=== PATIENT | male | born 1960 | race Caucasian/White ===

== ENCOUNTER 2016-12-28 14:12 | Emergency (ER) | payer MEDICAID ==
[2016-12-28 14:32] VITALS: BP 149/108; PULSE 104; RESP 18; TEMP 99.1; O2SAT 98
[2016-12-28 14:42] LABS: COLOR YELLOW; LEUKOCYTE ESTERASE,URINE NEGATIVE (NEGATIVE); NITRITE,URINE NEGATIVE (NEGATIVE); PH,URINE 5.5 (5.0-7.5)
--- NOTE | 2016-12-28 15:29 | UCPHY ---
H & P Time Seen by Provider: 12/28/16 14:58 Patient Type: Established HPI/ROS: This patient notes a 2 month history of left-sided breast lump that has been mildly tender just lateral to the left nipple and now notes some tenderness a small lump to the right breast in a similar location. He is concerned about potential breast cancer as he has a family history of father with lymphoma and mother side of the family with breast cancer. He notes no exacerbating or alleviating factors for the symptoms. He reports mild discomfort associated with this. ROS: No high fevers or chills. No other constitutional symptoms. HEENT: No complaints pulmonary: No complaints cardiovascular: No lightheadedness GI: No complaints musculoskeletal: He complains of low back discomfort that he thinks was from falling sleep on the couch few nights ago. This was initially moderate bilateral paraspinous lumbar and is now minimal. The discomfort increases with movement. There has been no discharge from the nipples. Finally , he reports foul-smelling urine 3 days ago that is now improving. 10 point ROS is otherwise negative. Past Medical/Surgical History: Hypertension, CHF Social History: He does not use marijuana. Smoking Status: Light smoker Physical Exam: General Appearance: Alert, no distress. Eyes: Pupils equal and round no pallor or injection. ENT, Mouth: Mucous membranes moist. Respiratory: There are no retractions, lungs are clear to auscultation. Chest/breasts: Patient has a scar to the left lateral nipple region. He has some underlying fibers feeling tissue approximately 2 cm in diameter with mild tenderness. There is no overlying erythema or fluctuance. There is no orange peel appearance to the breast. The right breast exam reveals similar mild fibrous finding adjacent to the nipple smaller dimension approximately 1 cm. Minimal tenderness is present both sides. There is no skin changes overlying either breast. Cardiovascular: Regular rate and rhythm. Gastrointestinal: Abdomen is soft and nontender, no masses, bowel sounds normal. Back: No midline tenderness. Patient has mild bilateral paraspinous lumbar muscular tenderness that reproduces symptoms. Despite this retains full range of motion without increase in pain except mild increase with forward flexion. Neurological: Alert. No sensory motor deficits. Skin: Warm and dry, no rashes. Extremities are symmetrical, full range of motion. Psychiatric: Mood and affect normal DIFFERENTIAL DIAGNOSIS: After history and physical exam differential diagnosis was considered for breast scarring from injury, breast cancer, benign hypertrophy, low back strain, rule out UTI Constitutional: Initial Vital Signs Temperature (C) 37.3 C 12/28/16 14:23 Heart Rate 104 H 12/28/16 14:23 Respiratory Rate 18 12/28/16 14:23 Blood Pressure 149/108 H 12/28/16 14:23 O2 Sat (%) 98 12/28/16 14:23 O2 Delivery Mode Room Air Allergies/Adverse Reactions: No Known Allergies Allergy (Unverified 12/28/16 14:39) Home Medications: Medication Instructions Recorded Carvedilol 02/09/16 Carvedilol 12.5 mg PO BID #60 tablet 02/09/16 Furosemide [Lasix] 40 mg PO DAILY #60 tab 02/09/16 Lasix 02/09/16 Lisinopril 02/09/16 Lisinopril 10 mg PO DAILY #30 tablet 02/09/16 Spironolactone 02/09/16 Spironolactone 25 mg PO DAILY #30 tablet 02/09/16 MDM/Departure - MDM Diagnostics: Urinalysis is normal. ED Course/Re-evaluation: I consulted our radiologist-Dr. Thapa regarding this case knee recommends both ultrasound and mammogram and follow-up. I spoke with Dr. nj scope-the outpatient on-call physician-[facility]. Patient will follow up with their practice to establish primary care physician and Dr. Vergara will order the studies-ultrasound and mammogram of breasts for further evaluation. - Depart Disposition: Home, Routine, Self-Care Clinical Impression: Breast lump Low back strain Qualifiers: Encounter type: initial encounter Qualified Code(s): S39.012A - Strain of muscle, fascia and tendon of lower back, initial encounter Condition: Good Instructions: Breast Mass (ED), Low Back Strain (ED) Additional Instructions: Diagnosis: 1. Breast lump 2. Low back strain Plan: Call Dr. gissell li at [facility]-through [phone] to establish primary care physician and she will order the studies at her follow -up appointment. For low back-take ibuprofen Tylenol as needed Referrals: NONE *PRIMARY CARE P,. [Primary Care Provider] - As per Instructions Carey Vergara MD [Medical Doctor] - As per Instructions - PQRS PQRS Measurement: NA
== END 2016-12-28 15:43 | disposition home or self-care (01) ==
LOC: CED 14:12
DX: N63 Unspecified lump in breast (principal); S39.012A Strain of muscle, fascia and tendon of lower back, initial encounter; Z80.3 Family history of malignant neoplasm of breast; X50.1XXA Overexertion from prolonged static or awkward postures, initial encounter; Y92.018 Other place in single-family (private) house as the place of occurrence of the external cause
CPT/HCPCS: 81003-PO; 99214-PO; G0463-PO